=== PATIENT | male | born 1985 | race Caucasian/White ===

== ENCOUNTER → 2020-05-14 | Outpatient (CLI) | payer OTHER | END | disposition home or self-care (01) | LOC: RAD 15:58 | PROVIDERS: ATTEND Chiropractor Orthopedic | DX: S82.872E Displaced pilon fracture of left tibia, subsequent encounter for open fracture type I or II with routine healing (principal); M19.072 Primary osteoarthritis, left ankle and foot; X58.XXXD Exposure to other specified factors, subsequent encounter ==